=== PATIENT | female | born 1955 | race Caucasian/White ===

== ENCOUNTER → 2016-07-22 | Outpatient (CLI) | payer BC ==
[~2016-07-22] MED LIST: ACIPHEX20 MG PO; EFFEXOR XR150 MG PO; HCTZ; LEVOTHYROXINE PO; TRAZADONE HCL; ZOCOR 10MG10 MG PO
== END ==
LOC: MC.RAD 09:40
DX: Z12.31 Encounter for screening mammogram for malignant neoplasm of breast (principal)

== ENCOUNTER → 2017-08-11 | Outpatient (CLI) | payer BC | LOC: MC.RAD 07:53 | DX: Z12.31 Encounter for screening mammogram for malignant neoplasm of breast (principal) ==

== ENCOUNTER → 2017-09-18 | Outpatient (CLI) | payer BC | LOC: COL.VAS 13:48 | DX: T84.84XA Pain due to internal orthopedic prosthetic devices, implants and grafts, initial encounter (principal); M79.604 Pain in right leg; Z96.651 Presence of right artificial knee joint ==

== ENCOUNTER → 2018-08-25 | Outpatient (CLI) | payer BC | LOC: MC.RAD 10:11 | DX: Z12.31 Encounter for screening mammogram for malignant neoplasm of breast (principal); N64.89 Other specified disorders of breast ==

== ENCOUNTER → 2018-08-28 | Outpatient (CLI) | payer BC | LOC: MC.RAD 08:44 | DX: Z12.31 Encounter for screening mammogram for malignant neoplasm of breast (principal); N64.89 Other specified disorders of breast | CPT/HCPCS: G0279 ==

== ENCOUNTER → 2019-08-19 | Outpatient (CLI) | payer BC | LOC: COL.RAD 09:22 | DX: K44.9 Diaphragmatic hernia without obstruction or gangrene (principal); K21.9 Gastro-esophageal reflux disease without esophagitis ==

== ENCOUNTER 2019-09-29 09:27 | Day surgery (SDC) | payer BC ==
[~2019-09-29] VITALS: Ht 165.1 cm; Wt 89.8 kg
[2019-09-29] VITALS (11 sets, daily range): BP systolic 133–161; BP diastolic 56–87; PULSE 63–107; TEMP 97.5–98.3
[2019-09-29] MEDS ORDERED: PROTONIX20 MG PO (11:07)
[2019-09-29] MEDS ORDERED: TRIAMCINOLONE A15 GM TP (11:07)
[2019-09-29] MEDS ORDERED: EFFEXOR-XR150 MG PO (11:10)
[2019-09-29] MEDS ORDERED: SINGULAIR 110 MG/TAB PO (11:11)
[2019-09-29] MEDS ORDERED: LOTENSIN20 MG PO (11:12)
[2019-09-29] MEDS ORDERED: HCTZ 25MG TAB25 MG PO (11:13)
[2019-09-29] MEDS ORDERED: DESYREL 100MG100 MG PO (11:14)
[2019-09-29] MEDS ORDERED: SYNTHROID0.075 MG/T PO (11:14)
[2019-09-29] MEDS ORDERED: ADIPEX-P37.5 M2 PO (11:17)
[2019-09-29] MEDS ORDERED: ZOCOR 40MG40 MG PO (11:17)
[2019-09-29] MEDS ORDERED: ICAPS TABLET1 EACH PO ×2 (11:18→16:24)
[2019-09-29] MEDS ORDERED: MAGNESIUM250 M1 PO (11:19)
[2019-09-29] MEDS ORDERED: VITAMIN B COMPL1 T16 PO (11:42)
[2019-09-29] MEDS ORDERED: NATURAL POTASS595 MG PO (11:43)
[2019-09-29] MEDS ORDERED: ALLERGY SHOTS (11:44)
--- NOTE | 2019-09-29 14:55 | NUR ---
Patient to room from surgery via bed. Having some discomfort in shoulders. Explain that this can be from the air that is used during the procedure and as soon as she wakens more we can get her out of bed and moving around to try to help alleviate the pain. Denies nausea. Abd lap sites x6 with bandaids CDI. Patient denies needs at this time.
--- NOTE | 2019-09-29 16:09 | NUR ---
Patient having increasing pain in neck/shoulders. IV site saline locked. Ambulate with the patient in halls. Patient returns back to room. Requests medication for pain. Explained I would look to see what she could have and come back to let her know. Denies further needs.
--- NOTE | 2019-09-29 16:21 | NUR ---
Administered [place] as prescribed.
--- NOTE | 2019-09-29 17:07 | NUR ---
Patient having increasing pain into neck area and into ears. Dr. Stewart updated. Awaiting response.
--- NOTE | 2019-09-29 17:48 | NUR ---
Continues to have discomfort in upper chest/shoulders/neck. Ambulate with the patient in halls. Gait steady. Patient returns to room and is able to urinate in bathroom. gets in bed at this time. Denies further needs.
--- NOTE | 2019-09-29 18:28 | NUR ---
Lying in bed in supine position with eyes closed. Opens eyes when start talking. Denies needs or concerns at this time. Explains that she is tired.
--- NOTE | 2019-09-29 20:00 | NUR ---
Reports pain to neck and abdomen. Has SQ emphysema noted in neck and upper chest. Medicated with [place] 1 tab now. Independent in room and hallway. Abdomen with 6 bandaids, D/I. Denies nausea. SL to right hand without redness or swelling.
--- NOTE | 2019-09-29 22:00 | NUR ---
HS meds given including Dilaudid 0.25mg IV for continued head and neck pain.
--- NOTE | 2019-09-29 23:59 | NUR ---
MEDICATED WITH [place] 1 TAB AND MOTRIN 600MG PO FOR NECK AND ABD DISCOMFORT.
[2019-09-30 03:59] VITALS: BP 134/58; PULSE 72; TEMP 98.3
--- NOTE | 2019-09-30 04:11 | NUR ---
PT REPORTS PAIN 6/10 TO NECK AND SORENESS TO ABDOMEN. MEDICATED WITH [place] 1 TAB AND DILAUDID 0.25MG IVP. WILL MONITOR FOR CHANGES.
--- NOTE | 2019-09-30 05:50 | NUR ---
Pt takes AM meds. Reports relief of neck pain with meds given at 0411.
[2019-09-30 07:24] VITALS: BP 133/75; PULSE 85; TEMP 98.5
--- NOTE | 2019-09-30 07:48 | NUR ---
Sitting up in bed. Denies nausea. Rates pain in abd 11/04, describes as achy. Would like pain medication if she is able to receive at this time. When asked if she has been passing gas patient replies "not really". Explain that the more she is up moving around today hopefully that will get her bowels moving. Patient concerned of her temp being a little higher than her normal. Explain to the patient that fever is greater than 100.4 and we will continue to monitor her temp throughout the day. Encouraged coughing and deep breathing and getting up in room, walking in halls. Abd lap sites x6 with bandaids intact. No redness/swelling/discharge noted from sites. Continues to have some crepitus in upper chest/neck area, patient says that it is better than it was last night. Denies further needs at this time.
--- NOTE | 2019-09-30 09:00 | NUR ---
Patient ambulating in halls.
[2019-09-30 11:26] VITALS: BP 132/66; PULSE 79; TEMP 98.2
--- NOTE | 2019-09-30 11:36 | NUR ---
Sitting in bed eating lunch. Denies nausea. Rates pain 4/10 in abd, describes as sore. Offered pain medication and patient declines at this time. Denies further needs.
[2019-09-30] MEDS ORDERED: NORCO 325 MG-51 TAB PO (11:41)
--- NOTE | 2019-09-30 12:18 | NUR ---
Reviewed discharge instructions with the patient. Questions answered. Patient verbalizes understanding and signs all discharge documents. Provided discharge packet to the patient. Patient's dad here to pharmacy picking technician patient. Patient escorted to [facility] by TERENCE Greene. Patient has all personal belongings.
== END 2019-09-30 12:18 | disposition home or self-care (01) ==
LOC: SDCO 09:27 → SURG 14:55 → SDCO 09-30 12:18
DX: K44.9 Diaphragmatic hernia without obstruction or gangrene (principal); K21.9 Gastro-esophageal reflux disease without esophagitis; F32.9 Major depressive disorder, single episode, unspecified; I10 Essential (primary) hypertension; E78.00 Pure hypercholesterolemia, unspecified; E03.9 Hypothyroidism, unspecified; Z85.3 Personal history of malignant neoplasm of breast; Z96.651 Presence of right artificial knee joint; Z90.710 Acquired absence of both cervix and uterus; Z90.12 Acquired absence of left breast and nipple; Z82.3 Family history of stroke; Z88.2 Allergy status to sulfonamides
CPT/HCPCS: OP; C1781; J0690; J1100; J1170; J1885; J2405; J2550; J2704; J3010; J7120

== ENCOUNTER → 2021-06-26 | Outpatient (CLI) | payer BC ==
[~2021-06-26] MED LIST changes: +ADIPEX-P37.5 M2 PO; +ALLERGY SHOTS; +DESYREL 100MG100 MG PO; +EFFEXOR-XR150 MG PO; +HCTZ 25MG TAB25 MG PO; +ICAPS TABLET1 EACH PO; +LOTENSIN20 MG PO; +MAGNESIUM250 M1 PO; +NATURAL POTASS595 MG PO; +NORCO 325 MG-51 TAB PO; +PROTONIX20 MG PO; +SINGULAIR 110 MG/TAB PO; +SYNTHROID0.075 MG/T PO; +TRIAMCINOLONE A15 GM TP; +VITAMIN B COMPL1 T16 PO; +ZOCOR 40MG40 MG PO
== END ==
LOC: COL.RAD 06-20 08:00
DX: K21.9 Gastro-esophageal reflux disease without esophagitis (principal); K25.9 Gastric ulcer, unspecified as acute or chronic, without hemorrhage or perforation; Z98.890 Other specified postprocedural states
CPT/HCPCS: A9541

== ENCOUNTER → 2023-08-13 | Outpatient (CLI) | payer MEDICARE, OTHER | LOC: MC.RAD 13:44 | DX: N63.15 Unspecified lump in the right breast, overlapping quadrants (principal) ==

== ENCOUNTER → 2023-08-19 | Outpatient (CLI) | payer MEDICARE, OTHER | LOC: MC.RAD 09:46 | DX: N63.15 Unspecified lump in the right breast, overlapping quadrants (principal) ==